=== PATIENT | male | born 1940 | race Caucasian/White ===

== ENCOUNTER 2017-01-22 19:19 | Emergency (ER) | payer MEDICARE ==
--- NOTE | 2017-01-23 04:36 | ER ---
ADMIT: 01/22/2017 RM/LOC: ER [facility] MR#: [id number] [address] [facility] [address] [place], [place] [address] NOY PALOMARES [address] [place] [address] Emergency Room Report SEX: M AGE: 76 : 1940 DATE: 01/22/2017 The patient is a 76-year-old male, status post recent bladder sphincterotomy, complains of urinary frequency, nausea, bloating, without fevers or chills past 24 hours. Exam remarkable for nontoxic, afebrile male with obviously distended abdomen. UA showed 4 wbc's, 12 rbc's, 1+ blood, hemoglobin 10.2, normal WBC, creatinine 1.8, INR 1.25. Troponin less than 0.015, lipase 111. CT showed distended bladder with hydroureter, no evidence of stone. Chest x- ray showed increased perihilar markings, Uro-Jet, Morton, leg and night bag. Home with Levaquin 500 mg daily, #7, 1st dose in department. Follow up with Dr. Hayden tomorrow at 8:30. Brad Abrams MD/ julio JOB #: [id number] CC: Brad Abrams MD, Attending Physician Eligio Aguila MD, Family Physician R MD Eligio Cannon MD
--- NOTE | 2017-01-30 19:01 | ER ---
ADMIT: 01/22/2017 RM/LOC: ER [facility] MR#: [id number] [address] [facility] [address] NOY PALOMARES [address] [address] [place] [address] Emergency Room Report SEX: M AGE: 76 : 1940 CORRECTED: 01/30/2017 1312 DJS DATE: 01/22/2017 DIAGNOSIS: Acute urinary retention status post artificial sphincter 4 weeks ago. Brad Abrams MD/ modl JOB #: [id number] CC: Brad Abrams MD, Attending Physician Eligio Aguila MD, Family Physician R MD Eligio Cannon MD CORRECTED: 01/30/2017 1312 DJ
[2017-02-01] MEDS ORDERED: MIRALAX PACKET17 GM PO (11:36)
[2017-02-01] MEDS ORDERED: ZYLOPRIM-DPS300 MG PO (11:36)
[2017-02-01] MEDS ORDERED: TOUJEO SOL300 UNIT/1 SQ (11:36)
[2017-02-01] MEDS ORDERED: COZAAR DPS25 MG PO (11:36)
[2017-02-01] MEDS ORDERED: CIPRO DPS500 MG PO (11:37)
[2017-02-01] MEDS ORDERED: HUMALOG100 UNIT/1 SQ (11:37)
[2017-02-01] MEDS ORDERED: VITAMIN D1000 UNIT PO (11:37)
[2017-02-01] MEDS ORDERED: TOPROL XL DPS25 MG PO (11:37)
== END 2017-01-22 21:22 | disposition home or self-care (01) ==
LOC: ER 19:19
PROC: 0T9B70Z Drainage of Bladder with Drainage Device, Via Natural or Artificial Opening (ICD-10-PCS; principal; 2017-01-22)
DX: R33.9 Retention of urine, unspecified (principal); E11.9 Type 2 diabetes mellitus without complications; I10 Essential (primary) hypertension; Z87.442 Personal history of urinary calculi; Z88.2 Allergy status to sulfonamides; Z79.4 Long term (current) use of insulin; Z87.891 Personal history of nicotine dependence

== ENCOUNTER 2017-01-28 09:56 | Inpatient (IN) | payer MEDICARE ==
[~2017-01-28] VITALS: Ht 167.6 cm; Wt 94.0 kg
--- NOTE | 2017-01-29 08:47 | HP ---
ADMIT: 01/28/2017 RM/LOC: 633 [facility] MR#: [id number] [facility]#: [id number] [address] [address] NOY PALOMARES [address] [place] [address] History and Physical SEX: M AGE: 76 : 1940 DATE OF SERVICE: HISTORY OF PRESENT ILLNESS: This is a 76-year-old gentleman, on 12/26/2016 underwent insertion of a urinary sphincter prosthesis for his urinary incontinence. He had done well up until approximately four weeks postoperatively when he developed urinary retention. Presented to the emergency room at [facility] at which time, a #16-Surinamese Morton catheter was inserted. He has had gross hematuria since that time. He had been on Pradaxa 150 mg two tablets daily, stopping this approximately four days ago. Yesterday, he underwent cystoscopy with removal of several clots, but has had persistent hematuria since. Because of the small size of the catheter that can be used because of his urinary sphincter, he is difficult to get adequate bladder drainage to remove all these clots requiring irrigation. He is admitted now for control of his hematuria. PAST MEDICAL HISTORY: MEDICATIONS: Zyloprim 300 mg daily, vitamin D3 1000 units daily, Toujeo insulin 300 units/mL taking 1.5 mL daily, Humalog insulin 100 units/mL three times a day before each meal, Cozaar 25 mg two tablets twice a day, Toprol-XL 25 mg daily, and hydrocodone as needed. ALLERGIES: NONE. OPERATIONS: Cardiac ablation x2, carpal tunnel release, extracorporeal shockwave lithotripsy, hip arthroplasty on the right, laminectomy, pacemaker implantation, radical prostatectomy. REVIEW OF SYSTEMS: He does have a history of atherosclerotic cardiovascular disease, adult onset diabetes mellitus, adenocarcinoma of the prostate, and urolithiasis. FAMILY HISTORY: Negative for urologic problems. SOCIAL HISTORY: He is and does not smoke. PHYSICAL EXAMINATION: GENERAL: This is a healthy appearing 76-year-old, in no acute distress. HEENT: Unremarkable. NECK: Supple without adenopathy. CHEST: Clear to auscultation and percussion. ADMIT: 01/28/2017 RM/LOC: 633 [facility] MR#: [id number] [address] [place], [place] [address] LANDRYNOY Isaac [address] [place] [address] History and Physical SEX: M AGE: 76 : 1940 HEART: Regular rate and rhythm without murmur. ABDOMEN: Soft without masses or tenderness throughout. GENITALIA: Penis is normal with an indwelling Morton catheter with pink tinged urine noted. EXTREMITIES: Had full range of motion without deformity. NEUROLOGICAL: He is grossly intact. ASSESSMENT: 1. Gross hematuria secondary to overdistention of bladder with urinary retention in combination with his Pradaxa therapy. Plan, IV hydration along with probable transfusion given recent blood loss. 2. We will monitor his diabetes closely during this process. Ritesh Hayden MD/ waldemarl JOB #: [id number] CC: Ritesh Hayden MD, Attending Physician Eligio Aguila, Family Physician
--- NOTE | 2017-02-01 07:51 | DS ---
ADMIT: 01/30/2017 RM/LOC: 633 [facility] MR#: [id number] [address] [address] NOY PALOMARES [address] [place] [address] General Discharge Summary SEX: M AGE: 76 : 1940 ADMISSION DATE: 01/30/2017 DISCHARGE DATE: 01/31/2017 FINAL DIAGNOSES: 1. Acute/persistent hematuria. 2. Status post recent urinary sphincter prosthesis. 3. Acute anemia secondary to blood loss, now stable. 4. Chronic anticoagulation with Pradaxa for atrial fibrillation. 5. Hypertension. 6. Diabetes mellitus, type 2. 7. Coronary artery disease. CONSULTATIONS: 1. Urology. 2. Cardiology. LABORATORY DATA AND IMAGING: Discharge hemoglobin was 9.0. Creatinine 1.4. Admission hemoglobin was 6.7. Admission creatinine 1.8. For further labs and imaging, refer to hospital record. REASON FOR ADMISSION: Please refer to dictated H and P. Briefly, this is a 76-year-old male with the above diagnoses. He had been following with Dr. Hayden. He was having significant bleeding after having cystoscopy and exploratory done over at the surgery center, can get bleeding to stop through the Morton, therefore, the patient was admitted to the hospital for further workup and management. HOSPITAL COURSE: The patient was admitted to telemetry for routine orders. The patient received 4 units packed red blood cells through the hospital stay. Cardiology was consulted to give recommendations on Pradaxa. At this time, they are recommending holding Pradaxa until further notice until resolution and healing of the recent sphincter implantation. By day of discharge, the patient was doing much better. He continued to have indwelling Morton catheter. Hematuria improved significantly. Hemoglobin was stabilized. There were no other major events during hospitalization. The patient was planned to follow up with Dr. Koefoot tomorrow following day following hospitalization for possible removal of Morton and activation of implanted sphincter. Recommended that he follow up with Dr. Aguila on Monday with repeat hemoglobin and BMP to further ensure that creatinine remains stable as well as hemoglobin. The patient was much improved on day of discharge, and ready to go home with his . DISCHARGE MEDICATIONS: Please refer to hospital record. We are holding ADMIT: 01/30/2017 RM/LOC: 633 [facility] MR#: [id number] 26[address] [facility] [address] [place] [address] NOY PAOLMARES [address] [place] [address] General Discharge Summary SEX: M AGE: 76 : 1940 Pradaxa. The patient is going home on Cipro prophylactically. DISCHARGE INSTRUCTIONS: The patient was instructed to take all medications as prescribed and as above continue to hold his Pradaxa. Follow up with Urology tomorrow. Follow up with Dr. Aguila on Monday. He is scheduled to see Dr. Kaplan in [place] in 1 to 2 months. Can consider restarting Pradaxa once hematuria has stabilized for significant time. Discussed risks of stroke from atrial fibrillation being off anticoagulation, however, with his persistent hematuria, he is at much more risk for bleeding complications. The patient understands and agreeable to staying off Pradaxa. Discharge activities took approximately 35 minutes. Onel Alvarez MD/ julio JOB #: [id number] CC: Sumeet Hayden, Attending Physician Eligio Aguila MD, Family Physician
[2017-02-01] MEDS ORDERED: ZYLOPRIM-DPS300 MG PO (11:36)
[2017-02-01] MEDS ORDERED: MIRALAX PACKET17 GM PO (11:36)
[2017-02-01] MEDS ORDERED: TOUJEO SOL300 UNIT/1 SQ (11:36)
[2017-02-01] MEDS ORDERED: COZAAR DPS25 MG PO (11:36)
[2017-02-01] MEDS ORDERED: VITAMIN D1000 UNIT PO (11:37)
[2017-02-01] MEDS ORDERED: TOPROL XL DPS25 MG PO (11:37)
[2017-02-01] MEDS ORDERED: CIPRO DPS500 MG PO (11:37)
[2017-02-01] MEDS ORDERED: HUMALOG100 UNIT/1 SQ (11:37)
--- NOTE | 2017-02-12 09:01 | DS ---
ADMIT: 01/30/2017 RM/LOC: 633 [facility] MR#: [id number] [address] [address] NOY PALOMARES [address] [place] [address] Discharge Summary SEX: M AGE: 76 : 1940 ADMISSION DATE: 01/30/2017 DISCHARGE DATE: 01/31/2017 DISCHARGE DIAGNOSES: 1. Gross hematuria secondary to over distention of urinary bladder with urinary retention in combination with Pradaxa therapy. 2. Atrial fibrillation, on Pradaxa. 3. Chronic renal disease. 4. Adult onset diabetes mellitus type 2. 5. Benign essential hypertension. OPERATIONS AND PROCEDURES: None. HISTORY OF PRESENT ILLNESS: This 76-year-old gentleman, on 12/26/2016, underwent insertion of a urinary sphincter prosthesis for urinary incontinence. He had done well up until approximately four weeks postop when he developed urinary retention. He presented to the emergency room at [facility] at which time a #16-Khmer Morton catheter was inserted. He did have approximately 1300 mL of residual urine noted. He had been on Pradaxa 150 mg 2 tablets daily and developed urinary retention. Because of his urinary sphincter, a 14 catheter was the largest catheter that could be inserted. He was having difficulty with clots coming through the catheter, and he is admitted now for treatment. LABORATORY DATA: CBC showed a white count of 6900 and a hematocrit of 28.1. Sodium is 139, potassium 4.9, chloride 109, CO2 24, BUN 22, glucose 82, and creatinine of 1.5. COURSE IN THE HOSPITAL: The patient was admitted with diagnosis of gross hematuria. On the day of admission, the catheter was irrigated with normal saline and free of any clots. Over the course of 48 hours, his urine remained intermittently bloody requiring a periodic catheter irrigation for clot ADMIT: 01/30/2017 RM/LOC: 633 [facility] MR#: [id number] [address] [address] NOY PALOMARES [address] [place] [place] [address] Discharge Summary SEX: M AGE: 76 : 1940 removal. The urine slowly improved, clearing finally without difficulty. Initial hematocrit on admission was 20.0 and he underwent blood transfusion of 4 units of packed cells. On the day of discharge, his hematocrit was 28.0 and stable. His creatinine was 1.4. He is discharged from the hospital on the 3rd hospital day to return to the office tomorrow for Morton catheter removal. He was instructed on increased fluid intake with no special diet given. He will continue on all prehospitalization medications other than the Pradaxa, which is on hold at this time. Ritesh Hayden MD/ rayshawn JOB #: [id number] CC: Sumeet Hayden, Attending Physician Eligio Aguila MD, Family Physician MD Manny Malloy MD
--- NOTE | 2017-02-12 15:28 | CO ---
ADMIT: 01/30/2017 RM/LOC: 633 [facility] MR#: [id number] [address] [address] NOY PALOMARES [address] [address] [place] [address] Consultation SEX: M AGE: 76 : 1940 Corrected: 02/08/2017 1353 diego DATE OF CONSULTATION: 01/29/2017 ATTENDING PHYSICIAN: Ritesh Hayden MD CONSULTING PHYSICIAN: Eligio Aguila MD CHIEF COMPLAINT: Diabetes, heart problems, and anticoagulation therapy. HISTORY OF PRESENT ILLNESS: This 76-year-old white male, admitted to [facility] on January 28 with hematuria after having urinary sphincter implanted and some problems with retention and hematuria. He is here for bladder irrigation and his Pradaxa was held due to his chronic ongoing hematuria since the procedure. PAST MEDICAL HISTORY: Includes multiple surgeries including total hip, cardiac ablations for atrial fibrillation, pacemaker, radical prostatectomies for prostate cancer, kidney stones, and prior lithotripsies with history of gout, diabetes mellitus type 2, atrial fibrillation, hypertension, chronic kidney disease, follow up with Dr. Dumont, coronary artery disease, and arrhythmias. MEDICATIONS: Listed on his admission med sheet. Please include a copy of his medications includin. Zyloprim. 2. Vitamin D. 3. Toujeo. 4. Humalog. 5. Cozaar. 6. Toprol-XL. 7. Hydrocodone. ALLERGIES: NONE. SOCIAL HISTORY: 76-year-old, white male. He is a nonsmoker. He lives in a [place] [facility]. FAMILY HISTORY: Noncontributory. REVIEW OF SYSTEMS: Remarkable for problems outlined above. His main problem at this time is indwelling catheter with irrigation along with concerns regarding his atrial fib. Remainder review of systems negative. PHYSICAL EXAMINATION: VITAL SIGNS: Include a temperature 99, pulse of 80, respiratory rate 24, blood pressure 115/59, and sat 97% on room air. GENERAL APPEARANCE: A 76-year-old male who is alert, oriented, in no acute distress. Lying in hospital bed with an indwelling Morton catheter with irrigation. ADMIT: 01/30/2017 RM/LOC: 633 [facility] MR#: [id number] [address] [address] NOY PALOMARES [address] [place] [address] Consultation SEX: M AGE: 76 : 1940 HEENT: Pupils reactive. Membranes moist. HEART: Controlled rate with a grade 1 murmur. LUNGS: Clear. ABDOMEN: Soft and benign. EXTREMITIES: No clubbing, cyanosis, or edema. NEURO: Grossly normal including light touch, strength, and DTRs. LABORATORY AND X-RAY DATA: Include sodium 139, potassium 5.1, BUN of 23, creatinine 1.7 with glucose 100. LFTs are normal. White count 6.6, hemoglobin 7.5, platelet count 134,000. UA shows 2+ protein on the 9th. ASSESSMENT: 1. Hematuria with recent urinary sphincter with ongoing hematuria and irrigation secondary to Pradaxa. 2. Atrial fibrillation, currently on Pradaxa, which is being held due to his hematuria. Other problems include chronic kidney disease, followed by Dr. Dumont in Nephrology with current creatinine of 1.7. Other problems include prostate cancer status post radical prostatectomy, degenerative arthritis status post right total hip, nephrolithiasis, prior cardiac ablations with current atrial fib flutter, gout, diabetes mellitus type 2, benign essential hypertension. PLAN: We will obtain hemoglobin A1c and TSH. We will monitor his hemoglobin and assess for need for further transfusions. Put him on 24-hour calorie diabetic diet with Accu-Cheks a.c. and at bedtime. Place him on telemetry for his atrial fib and get Dr. Kaplan and [facility] on board given his atrial fib and current need to hold Pradaxa. We will write for some p.r.n. stool softeners per patient request and follow along. Eligio Aguila MD/ julio JOB #: [id number] CC: Ritesh Hayden MD, Attending Physician Eligio Aguila, Family Physician Corrected: 02/08/2017 1353 diego
--- NOTE | 2017-02-13 14:23 | CO ---
ADMIT: 01/28/2017 RM/LOC: 633 [facility] MR#: [id number] [address] [address] NOY PALOMARES [address] [place] [place] [address] Consultation SEX: M AGE: 76 : 1940 DATE OF CONSULTATION: 01/29/2017 ATTENDING PHYSICIAN: Ritesh Hayden MD CONSULTING PHYSICIAN: Manny Hawkins MD REASON FOR CONSULT: Hematuria in the setting of atrial fibrillation and chronic anticoagulation. HISTORY OF PRESENT ILLNESS: Roshan is a very nice 76-year-old gentleman whom we see routinely in [place]. He has a history of paroxysmal atrial fibrillation previously on sotalol and anticoagulation. He also has chronic kidney disease, but his GFR has been greater than 30 and he has been on 150 b.i.d. Over the past year, his atrial fibrillation has become persistent and over the past few months, we changed our treatment strategy to rate control. He has been struggling with urinary retention for some time. Apparently about a week ago, he came in to the emergency room because he was having such a hard time with urinary retention. They placed a Morton. It was replaced by Dr. Hayden in the office. He has also undergone some other urologic procedures, but I am not clear on the details. Regardless, for this past week, he has been having gross hematuria. He has had to have his Morton irrigated on multiple occasions because of clots in the Morton. He stopped his Pradaxa at least 5 days ago. Despite this, he has continued to have hematuria. He was admitted early today with anemia. His hemoglobin on admission was 6.7. After 2 units transfusion, it is up to 7.4. He has recently been chronically anemic, but not so severe. He has been feeling lethargic for at least past couple months. He currently still has his Morton in place with gross hematuria. He is receiving more blood today. He does not feel any palpitations. He has not had any chest pain. He has not had syncope. He has had some lightheadedness. PAST MEDICAL HISTORY: ALLERGIES: TO SULFA. HOME MEDICATIONS: Include: 1. Allopurinol 300 daily. 2. Losartan 25 b.i.d. 3. Pradaxa 150 b.i.d. 4. Toujeo p.r.n. 5. Vitamin D. 6. Metoprolol 25 daily. 7. Cipro 500 b.i.d. 8. Humalog insulin, p.r.n. subcu. ILLNESSES: Include diabetes. Chronic kidney disease with a creatinine 1.7. He has a history of atrial fibrillation, previously paroxysmal, but now persistent. 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 PAST SURGERIES: Include a hip replacement. He has had back fusion, I believe, he has had prostate surgery, carpal tunnel, and knee arthroscopy. FAMILY HISTORY: His mother at age 89 of kidney failure, she had diabetes. His father also had kidney problems. He has an older brother of a stroke and another brother has diabetes. His sister is healthy. SOCIAL HISTORY: He has been for 56 years. They have 5 children. He quit smoking 30 years ago. He admits to drinking 2-4 beers a day. 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 REVIEW OF SYSTEMS: A full 12-point review of systems was performed and noncontributory other than that mentioned above. PHYSICAL EXAMINATION: VITAL SIGNS: His blood pressure is 115/59, his pulse is in the 80s and irregular, Respirations are 18, and he is afebrile. GENERAL: He is pale, he is alert, he is oriented. He is accompanied by several family members. He is in no acute distress. EYES: Conjunctivae are pale. Sclerae clear. No xanthelasmas. SKIN: Pale, warm, and dry. ENT: Oral mucosa is pink and moist. No jugular venous distention or carotid bruits. HEART: Irregularly irregular. Normal S1, S2. No murmurs, rubs or gallops. CHEST: Respirations are even and unlabored. Lungs are clear to auscultation. ABDOMEN: Mildly obese. Soft and nontender. MUSCULOSKELETAL: Gait is normal. EXTREMITIES: Peripheral pulses palpable. No clubbing, cyanosis or edema. PSYCHIATRIC: Alert and oriented. Mood and affect are appropriate. LABORATORY DATA: Sodium 139, potassium is 5.1, creatinine is 1.7 and this appears to be about his baseline. His GFR is 37. AST and ALT are normal. Hemoglobin was 6.7 on admission. His white count 6.6, his platelet count is 134,000 today. IMPRESSION: 1. Persistent atrial fibrillation. 2. Prior permanent pacemaker implantation. 3. Gross hematuria and urinary retention. 4. Anemia secondary to his gross hematuria. 5. Chronic kidney disease. 6. Constipation and history of colonic polyps. RECOMMENDATIONS: Clearly we have to hold his Pradaxa. It has been held for the past 5 days and really should not be impacting his hematuria at this point. I will continue the evaluation of his hematuria and urinary retention ADMIT: 01/28/2017 RM/LOC: 633 [facility] MR#: [id number] [address] [address] NOY PALOMARES [address] [place] [address] Consultation SEX: M AGE: 76 : 1940 just as if he were not a patient on chronic anticoagulation. After full urologic evaluation and treatment, we can decide about resuming his anticoagulation in the future depending on the underlying etiology and the ability to treat it. Right now, I would determine that he is not an anticoagulation candidate and the only thing that would change that is if there is something reversible with his hematuria. Over the past year, his atrial fibrillation has become persistent. We are now pursuing a rate control strategy with his beta-steff. Thank you for this consultation. Manny Hawkins MD/ julio JOB #: [id number] CC: Ritesh Hayden MD, Attending Physician Eligio Aguila, Family Physician
== END 2017-01-31 09:45 | disposition home or self-care (01) | DRG 696 ==
LOC: 6PED 09:56
PROVIDERS: ADMIT Specialist
PROC: 30233N1 Transfusion of Nonautologous Red Blood Cells into Peripheral Vein, Percutaneous Approach (ICD-10-PCS; principal; 2017-01-28)
DX: R31.0 Gross hematuria (principal); E11.22 Type 2 diabetes mellitus with diabetic chronic kidney disease; I48.1 Persistent atrial fibrillation; D62 Acute posthemorrhagic anemia; I12.9 Hypertensive chronic kidney disease with stage 1 through stage 4 chronic kidney disease, or unspecified chronic kidney disease; M10.9 Gout, unspecified; R33.9 Retention of urine, unspecified; N18.9 Chronic kidney disease, unspecified; K59.00 Constipation, unspecified; I25.10 Atherosclerotic heart disease of native coronary artery without angina pectoris; M19.90 Unspecified osteoarthritis, unspecified site; Z95.0 Presence of cardiac pacemaker; Z79.4 Long term (current) use of insulin; Z85.46 Personal history of malignant neoplasm of prostate; Z96.641 Presence of right artificial hip joint; Z98.1 Arthrodesis status; Z87.891 Personal history of nicotine dependence; Z79.01 Long term (current) use of anticoagulants; Z96.0 Presence of urogenital implants

== ENCOUNTER 2017-02-26 11:29 | Emergency (ER) | payer MEDICARE ==
[~2017-02-26 11:29] MED LIST: CIPRO DPS500 MG PO; COZAAR DPS25 MG PO; HUMALOG100 UNIT/1 SQ; MIRALAX PACKET17 GM PO; TOPROL XL DPS25 MG PO; TOUJEO SOL300 UNIT/1 SQ; VITAMIN D1000 UNIT PO; ZYLOPRIM-DPS300 MG PO
--- NOTE | 2017-03-11 08:19 | ER ---
ADMIT: 02/26/2017 RM/LOC: ER [facility] MR#: [id number] [address] [address] NOY PALOMARES [address] [place] [address] Emergency Room Report SEX: M AGE: 76 : 1940 DATE: 02/26/2017 ADDENDUM: CHIEF COMPLAINT: Groin pain. HISTORY OF PRESENT ILLNESS: This is a 76-year-old male, who has an artificial sphincter in his groin for urinating. At this time, it has been active. He said all of a sudden, he had a sharp pain that just lasted for a few seconds but then went away. He did call Dr. Rodriges, he recommended him to come to the ER to be evaluated. Initially we did do bladder scans, postvoid. He actually was able to empty completely. CBC, BMP, and urine was collected. His urine shows 83 white blood cells, 5 red blood cells. He is currently on Levaquin. I told him according to how described the urine previously, that is probably improving. BMP is normal except for a BUN of 44 and creatinine of 2.0. He does see Dr. Dumont for renal insufficiency. He has a GFR of 31. CBC was normal except for hemoglobin of 9.3, hematocrit of 28.1. He has been having a little bit of diarrhea for the last couple days due to Kayexalate. I told him to go home and push fluids. Continue his antibiotic and follow up with Dr. Hayden tomorrow. CLINICAL IMPRESSION: 1. Urinary tract infection. 2. Chronic renal insufficiency with some mild dehydration. TRINI Woodward / Narayan Short MD / julio JOB #: [id number] CC: Narayan Short MD, Attending Physician UNKNOWN, Family Physician
== END 2017-02-26 13:28 | disposition home or self-care (01) ==
LOC: ER 11:29
DX: N39.0 Urinary tract infection, site not specified (principal); I12.9 Hypertensive chronic kidney disease with stage 1 through stage 4 chronic kidney disease, or unspecified chronic kidney disease; N18.9 Chronic kidney disease, unspecified; E86.0 Dehydration; E11.9 Type 2 diabetes mellitus without complications; Z79.4 Long term (current) use of insulin; Z79.899 Other long term (current) drug therapy; Z88.2 Allergy status to sulfonamides; Z85.46 Personal history of malignant neoplasm of prostate